=== PATIENT | female | born 1995 | race Caucasian/White ===

== ENCOUNTER 2022-03-21 07:23 | Outpatient (CLI) | payer MEDICAID ==
[2022-03-21 07:40] LABS: Hematocrit 28.7 % (30.3-42.9); Hemoglobin 9.5 gm/dl (10.1-14.3)
== END 2022-03-21 07:24 | disposition home or self-care (01) ==
LOC: LAB 07:23
PROVIDERS: ATTEND Obstetrics & Gynecology
DX: O26.893 Other specified pregnancy related conditions, third trimester (principal); Z67.41 Type O blood, Rh negative; Z3A.36 36 weeks gestation of pregnancy
CPT/HCPCS: 36415; 85014; 85018; 86850; 86900; 86901; 96372; J2790

== ENCOUNTER 2022-04-10 10:07 | Inpatient (IN) | payer MEDICAID ==
[2022-04-10] MEDS ORDERED: miSOPROStol 200 MCG TAB PR PRN (11:54)
[2022-04-10] MEDS ORDERED: BUTORPHANOL 2 MG/1 ML INJ IV PRN (11:54)
[2022-04-10] MEDS ORDERED: TERBUTALINE 1 MG/1 ML INJ SUB-Q PRN (11:54)
[2022-04-10] MEDS ORDERED: CARBOPROST TROMETHAMINE 250 MCG/1 ML INJ IM PRN (11:54)
[2022-04-10] MEDS ORDERED: ONDANSETRON 4 MG/2 ML INJ IV PRN (11:54)
[2022-04-10] MEDS ORDERED: MINERAL OIL 30 ML ORAL LIQD PO PRN (11:54)
[2022-04-10] MEDS ORDERED: OXYTOCIN 10 UNIT/1 ML INJ IM PRN (11:54)
[2022-04-10] MEDS ORDERED: ACETAMINOPHEN 325 MG TAB PO PRN (11:54)
[2022-04-10] MEDS ORDERED: NALOXONE 0.4 MG/1 ML INJ IV PRN (11:54)
[2022-04-10] MEDS ORDERED: LOPERAMIDE 2 MG CAP PO PRN (11:54)
[2022-04-10] MEDS ORDERED: ePHEDrine SULFATE 50 MG/1 ML INJ IV PRN (11:54)
[2022-04-10] MEDS ORDERED: METHYLERGONOVINE MALEATE 0.2 MG/ML VIAL IM PRN (11:54)
[2022-04-10] MEDS ORDERED: PROMETHAZINE 25 MG TAB PO PRN (11:54)
[2022-04-10] MEDS ORDERED: LACTATED RINGERS 1,000 ML IV SCH (12:00)
[2022-04-10] MEDS ORDERED: OXYTOCIN DRIP 30 UNITS/500 ML BAG IV SCH ×2 (12:00)
--- NOTE | 2022-04-10 12:16 | History and Physical Report ---
History of Present Illness Date of examination: 04/10/22 Date of admission: 04/10/22 Chief complaint: Decreased movements. History of present illness: 39 weeks gestation. . Past History Past Medical History: no pertinent history Past Surgical History: no surgical history - Obstetrical History Expected Date of Delivery: 04/17/22 Actual Gestation: 39 Week(s) 0 Day(s) : 3 Para: 2 Hx # Term Pregnancies: 2 Medications and Allergies Allergies Allergy/AdvReac Type Severity Reaction Status Date / Time No Known Allergies Allergy Verified 05/16/17 03:14 Home Medications Medication Instructions Recorded Confirmed Last Taken Type Ferrous Sulfate [Feosol 325 MG tab] 325 mg PO BID #60 tablet 05/17/17 Unknown Rx HYDROcodone/APAP 5-325 [[place] 1 each PO Q6H PRN #15 tablet 05/17/17 Unknown Rx 5-325 mg TAB] Ibuprofen [Motrin 600 MG tab] 600 mg PO Q6HR PRN #30 tablet 05/17/17 Unknown Rx Vit-Fe Fumar-FA [ 1 tab PO QDAY #30 tablet 05/17/17 Unknown Rx Vitamin] Ferrous Sulfate [Feosol 325 MG tab] 325 mg PO BID #60 tablet 09/25/18 Unknown Rx HYDROcodone/APAP 5-325 [[place] 1 each PO Q6HR PRN #20 tablet 09/25/18 Unknown Rx 5/325] Ibuprofen [Motrin] 800 mg PO Q8HR PRN #30 tablet 09/25/18 Unknown Rx Active Meds: Active Medications Acetaminophen (Acetaminophen 325 Mg Tab) 650 mg PO Q4H PRN PRN Reason: Pain, Mild (1-3) Butorphanol Tartrate (Butorphanol 2 Mg/1 Ml Inj) 1 mg IV Q2H PRN PRN Reason: Pain, Moderate(4-6) LABOR PAIN Butorphanol Tartrate (Butorphanol 2 Mg/1 Ml Inj) 2 mg IV Q2H PRN PRN Reason: Pain , Severe (7-10) Carboprost Tromethamine (Carboprost Tromethamine 250 Mcg/1 Ml Inj) 250 mcg IM ONCE PRN PRN Reason: Uterine Bleeding Ephedrine Sulfate (Ephedrine Sulfate 50 Mg/1 Ml Inj) 10 mg IV Q2M PRN PRN Reason: Hypotension Oxytocin/Sodium Chloride (Pitocin/Ns 30 Unit/500ml) 30 units in 500 mls @ 2 mls/hr IV TITR CHRISTOPHER; Protocol Lactated Ringer's (Lactated Ringers) 1,000 mls @ 125 mls/hr IV DIRECT CHRISTOPHER Oxytocin/Sodium Chloride (Pitocin/Ns 30 Unit/500ml) 30 units in 500 mls @ 40 mls/hr IV TITR CHRISTOPHER; Protocol Lidocaine (Lidocaine (2%) 20 Mg/1 Ml Vial 20 Ml Mdv) 20 ml INFILTRATI ONCE ONE Stop: 04/10/22 11:55 Loperamide HCl (Loperamide 2 Mg Cap) 2 mg PO ONCE PRN PRN Reason: give with Hemabate Methylergonovine Maleate (Methylergonovine Maleate 0.2 Mg/Ml Vial) 0.2 mg IM ONCE PRN PRN Reason: Uterine Bleeding Mineral Oil (Mineral Oil 30 Ml Oral Liqd) 30 ml PO QHS PRN PRN Reason: Constipation Misoprostol (Misoprostol 200 Mcg Tab) 800 mcg IA ONCE PRN PRN Reason: Uterine Bleeding Oxytocin (Oxytocin 10 Unit/1 Ml Inj) 10 unit IM ONCE PRN PRN Reason: Uterine Bleeding Terbutaline Sulfate (Terbutaline 1 Mg/1 Ml Inj) 0.25 mg SUB-Q ONCE PRN PRN Reason: Hyperstimulation/Hypertonicity Review of Systems All systems: negative Genitourinary: other (Decreased movements x1day) - Vital Signs Vital signs: Vital Signs Pulse BP Pulse Ox 75 120/70 98 04/10/22 11:26 04/10/22 11:26 04/10/22 11:26 Temp Pulse Resp BP Pulse Ox 98.3 F 85 20 120/70 98 04/10/22 11:30 04/10/22 12:11 04/10/22 11:30 04/10/22 11:30 04/10/22 12:11 - Physical Exam Breasts: Positive: deferred Cardiovascular: Normal S1, Normal S2 Lungs: Positive: Normal air movement Abdomen: Positive: normal appearance, soft, normal bowel sounds. Negative: tenderness Genitourinary (Female): Positive: normal external genitalia, normal perenium Vulva: both: normal Vagina: Positive: normal moisture. Negative: discharge Cervix: Negative: lesion, discharge Uterus: Positive: enlarged, normal contour Anus/Rectum: Positive: normal perianal skin, heme negative. Negative: rectal mass, hemorrhoids Extremities: Positive: normal Deep Tendon Reflex Grade: Normal +2 - Obstetrical FHR: auscultation normal Cervical Dilatation: 4 Cervical Effacement Percentage: 95 station: 0+1 Uterine Contraction Pattern: Absent Results All other labs normal. Assessment and Plan - Patient Problems (1) with 39 completed weeks gestation Current Visit: Yes Status: Acute (2) Decreased movement affecting management of mother, antepartum Current Visit: Yes Status: Acute Qualifiers: Fetus number: single or unspecified fetus Qualified Code(s): O36.8190 - Decreased movements, unspecified trimester, not applicable or unspecified Plan to address problem: For induction of labor.
[2022-04-10] MEDS ORDERED: LIDOCAINE (2%) 20 MG/1 ML VIAL 20 ML MDV INFILTRATI ONE (12:45)
[2022-04-10 13:14] LABS: Hematocrit 27.9 % (30.3-42.9); Hemoglobin 9.4 gm/dl (10.1-14.3); Mean Corpuscular HGB Conc 34 % (30-34); Mean Corpuscular Volume 76 fl (79-97); Platelet Count 263 K/mm3 (140-440); Red Blood Count 3.67 M/mm3 (3.65-5.03); Red Cell Distribution Width 14.9 % (13.2-15.2)
[2022-04-10 22:08] LABS: Bilirubin,Urine NEG (Negative); Blood,Urine MOD (Negative); Color,Urine Straw (Yellow); Protein,Urine <15 mg/dL mg/dL (Negative); RBC,Urine < 1.0 /HPF (0.0-6.0); Urobilinogen,Urine < 2.0 mg/dL (<2.0)
[2022-04-10 22:15] LABS: Amphetamine Screen,Urine PRESUMPTIVE NEGATIVE; Benzodiazepines Screen,Urine PRESUMPTIVE NEGATIVE; Cannabinoid Screen,Urine PRESUMPTIVE NEGATIVE; Cocaine Screen,Urine PRESUMPTIVE NEGATIVE; Methadone Screen,Urine PRESUMPTIVE NEGATIVE; Opiate Screen,Urine PRESUMPTIVE NEGATIVE
[2022-04-10 22:26] LABS: HCG,Quantitative 6626 mIU/mL (0-4); Hepatitis C Virus Antibody Non-Reactive (NonReactive)
[2022-04-11] MEDS: BUTORPHANOL 2 MG/1 ML INJ IV PRN ×2 (03:32→07:50)
[2022-04-11] MEDS ORDERED: PROMETHAZINE 25 MG TAB PO PRN (09:30)
--- NOTE | 2022-04-11 09:33 | Procedure Note ---
OB Delivery Note - Delivery Date of Delivery: 04/11/22 Surgeon: BEULAH OAKES Estimated blood loss: 200cc - Vaginal Delivery presentation: vertex Delivery position: OA Intrapartum events: none Delivery induction: oxytocin Delivery augmentation: pitocin Delivery monitor: external FHT, external uterine Route of delivery: Delivery placenta: spontaneous, expressed Delivery cord: nuchal cord, 3 umbilical vessels Episiotomy: none Delivery laceration: none Anesthesia: none - Infant A at 1 minute: 8 at 5 minutes: 9 (7lbs 4oz) Infant Gender: Male
[2022-04-11] MEDS ORDERED: ONDANSETRON 4 MG/2 ML INJ IV PRN (10:00)
[2022-04-11] MEDS ORDERED: diphenhydrAMINE 25 MG CAP PO PRN (10:00)
[2022-04-11] MEDS ORDERED: PRENATAL VIT27-FE FUMARATE-FOLIC ACID VIT TAB PO SCH (10:00)
[2022-04-11] MEDS ORDERED: WITCH HAZEL/ GLYCERIN PAD TP PRN (10:00)
[2022-04-11] MEDS ORDERED: LANOLIN/ZINC/DIMETHICONE (LANSINOH) 7 GM TP PRN (10:00)
[2022-04-11] MEDS ORDERED: HYDROcodone/ACETAMINOPHEN 5-325 MG TAB PO PRN (10:00)
[2022-04-11] MEDS ORDERED: PROMETHAZINE 25 MG RECT SUPP PR PRN (10:00)
[2022-04-11] MEDS ORDERED: ACETAMINOPHEN 325 MG TAB PO PRN (10:00)
[2022-04-11] MEDS ORDERED: METHYLERGONOVINE MALEATE 0.2 MG/ML VIAL IM PRN (10:00)
[2022-04-11 21:04] LABS: Hemoglobin 8.1 gm/dl (10.1-14.3)
[2022-04-11] MEDS: DOCUSATE SODIUM 100 MG CAP PO SCH (22:00)
[2022-04-11] MEDS ORDERED: MAGNESIUM HYDROXIDE (MOM) ORAL LIQD UDC PO PRN (22:00)
[2022-04-11] MEDS: IBUPROFEN 800 MG TAB PO SCH (22:01)
[2022-04-12] MEDS: IBUPROFEN 800 MG TAB PO SCH ×2 (05:47→09:14)
[2022-04-12] MEDS: DOCUSATE SODIUM 100 MG CAP PO SCH (09:14)
--- NOTE | 2022-04-12 09:30 | Progress Note ---
Assessment and Plan - Patient Problems (1) with 39 completed weeks gestation Current Visit: Yes Status: Resolved (2) Decreased movement affecting management of mother, antepartum Current Visit: Yes Status: Resolved Qualifiers: Fetus number: single or unspecified fetus Qualified Code(s): O36.8190 - Decreased movements, unspecified trimester, not applicable or unspecified (3) Status post normal vaginal delivery Current Visit: Yes Status: Acute Plan to address problem: Stable. Subjective - Subjective Date of service: 04/12/22 Principal diagnosis: Status post vaginal delivery day 1. Interval history: 39 weeks gestation. . 04/11/22. No complaints this morning. Patient reports: appetite normal, voiding normally, pain well controlled, ambulating normally [place]: doing well Objective - Vital Signs Latest vital signs: Vital Signs Temp Pulse Resp BP BP Pulse Ox Pulse Ox 04/12/22 08:15 100 04/12/22 07:39 97.6 F 85 18 108/64 99 04/12/22 00:29 97.9 F 88 18 120/62 100 04/11/22 20:00 97.7 F 98 H 18 115/69 99 100 04/11/22 15:56 98.1 F 110 H 18 119/74 100 04/11/22 10:50 98.0 F 86 14 120/76 97 97 04/11/22 10:27 70 100 04/11/22 10:23 84 115/84 04/11/22 10:22 85 99 Intake and Output 04/11/22 04/12/22 04/12/22 23:59 07:59 15:59 Intake Total 1040 900 120 Output Total 1600 Balance -560 900 120 Intake: Oral 240 240 120 Intake, Free Water 800 660 Output: Urine 1600 Void 1600 Other: Total, Intake Amount 240 240 120 Total, Output Amount 300 # Voids Void 1 2 1 - Exam Breasts: Present: deferred Lungs: Present: Normal air movement Abdomen: Present: normal appearance, soft, normal bowel sounds Uterus: Present: normal, firm Extremities: Present: normal Deep Tendon Reflex Grade: Normal +2 - Labs Labs: Abnormal lab results 04/11/22 Range/Units 20:43 Hgb 8.1 L (10.1-14.3) gm/dl Hct 25.0 L (30.3-42.9) %
--- NOTE | 2022-04-12 09:32 | Discharge Summary ---
Providers - Providers Date of Admission: 04/10/22 10:08 Date of discharge: 04/12/22 Attending physician: BEULAH OAKES MD Primary care physician: BEULAH OAKES MD Hospitalization Reason for admission: observation, induction of labor, IUP at term, other (Decreased movements.) Delivery: Episiotomy: none Laceration: none Other procedures: none complications: none Discharge diagnosis: IUP at term delivered baby: male Condition at discharge: Good Disposition: 01 HOME / SELF CARE / HOMELESS - Discharge Diagnoses (1) with 39 completed weeks gestation Status: Resolved (2) Decreased movement affecting management of mother, antepartum Status: Resolved Qualifiers: Fetus number: single or unspecified fetus Qualified Code(s): O36.8190 - Decreased movements, unspecified trimester, not applicable or unspecified (3) Status post normal vaginal delivery Status: Acute Plan - Provider Discharge Summary Activity: routine, no sex for 6 weeks, no heavy lifting 4 weeks, no strenuous exercise Diet: routine Instructions: routine Additional instructions: [] Smoking cessation referral if applicable(refer to patient education folder for contact #) [] Refer to [facility] Booklet Call your doctor immediately for: * Fever > 100.5 * Heavy vaginal bleeding ( >1 pad per hour) * Severe persistent headache * Shortness of breath * Reddened, hot, painful area to leg or breast * Drainage or odor from incision. * Keep incision clean and dry at all times and follow doctor's instructions regarding bathing/showering - Follow up plan Follow up: BEULAH OAKES MD [Primary Care Provider] - 7 Days Forms: [facility] Discharge Summary
[2022-04-12 13:30] VITALS: BP 110/65
== END 2022-04-12 13:26 | disposition home or self-care (01) | DRG 775 ==
LOC: TRG 10:07 → APU 10:07 → LD 10:08 → APU 13:49 → LD 04-11 09:39 → UNDOADMIN 04-11 09:39 → TRG 04-11 09:39 → OB 04-11 10:50
PROVIDERS: ADMIT Obstetrics & Gynecology; ATTEND Obstetrics & Gynecology
PROC: 10E0XZZ Delivery of Products of Conception, External Approach (ICD-10-PCS; principal; 2022-04-11)
DX: O69.81X0 Labor and delivery complicated by cord around neck, without compression, not applicable or unspecified (principal); O36.8130 Decreased fetal movements, third trimester, not applicable or unspecified; Z3A.39 39 weeks gestation of pregnancy; Z37.0 Single live birth; Z20.822 Contact with and (suspected) exposure to COVID-19
CPT/HCPCS: 36415; 80307; 81001; 84702; 85014; 85018; 85027; 85461; 86592; 86706; 86762; 86803; 86850; 86870; 86900; 86901; 87086; 87806; G0378; J0595; J2590; J7120; U0003

== ENCOUNTER 2022-05-02 06:00 | Day surgery (SDC) | payer MEDICAID ==
[2022-05-02] MEDS ORDERED: LACTATED RINGERS 1,000 ML ONE (06:29)
[2022-05-02] MEDS ORDERED: HYDROmorphone 0.5 MG/0.5 ML INJ IV PRN ×2 (07:44)
[2022-05-02] MEDS ORDERED: ACETAMINOPHEN 500 MG TAB PO NR (07:44)
[2022-05-02] MEDS ORDERED: MAGNESIUM OXIDE 400 MG TAB PO NR (07:44)
[2022-05-02] MEDS ORDERED: ONDANSETRON 4 MG/2 ML INJ IV PRN (07:44)
--- NOTE | 2022-05-02 07:45 | Anesthesia Day of Surgery ---
Anesthesia Day of Surgery - Day of Surgery Patient Examined: Yes Patient H&P Reviewed: Yes Patient is NPO: Yes
--- NOTE | 2022-05-02 07:46 | Anesthesia Consultation ---
Anesthesia Consult and Med Hx Date of service: 05/02/22 - Airway Anesthetic Teeth Evaluation: Good ROM Head & Neck: Adequate Mental/Hyoid Distance: Adequate Mallampati Class: Class II Intubation Access Assessment: Good - Pre-Operative Health Status ASA Pre-Surgery Classification: ASA1 Proposed Anesthetic Plan: General - Pulmonary Hx Smoking: No Hx Asthma: No COPD: No Hx Pneumonia: No Hx Sleep Apnea: No - Cardiovascular System Hx Hypertension: No - Central Nervous System Hx Seizures: No Hx Psychiatric Problems: No - Gastrointestinal Hx Gastroesophageal Reflux Disease: No - Endocrine Hx Renal Disease: No Hx End Stage Renal Disease: No Hx Hypothyroidism: No Hx Hyperthyroidism: No - Hematic Hx Anemia: No Hx Sickle Cell Disease: No - Other Systems Hx Alcohol Use: No Hx Cancer: No Hx Obesity: No - Additional Comments Anesthesia Medical History Comments: [id number] delivered. +
[2022-05-02] MEDS ORDERED: CELECOXIB 200 MG CAP PO NR (08:00)
[2022-05-02] MEDS ORDERED: MIDAZOLAM 2 MG/2 ML INJ IV NR (08:00)
[2022-05-02] MEDS ORDERED: LACTATED RINGERS 1,000 ML IV SCH ×2 (09:00→15:00)
[2022-05-02] MEDS ORDERED: ceFAZolin/Water 2 GM/20 ML 2 GM/20 ML SYRINGE IV ONE (09:12)
[2022-05-02] MEDS ORDERED: ceFAZolin/STERILE WATER 2 GM/20 ML SYRINGE IV NR (11:00)
--- NOTE | 2022-05-02 11:08 | History and Physical Report ---
History of Present Illness Date of examination: 05/02/22 Date of admission: 05/02/22 Chief complaint: Voluntary request for tubal sterilization History of present illness: . Last confinement 04/11/22. Done with childbearing. Past History Past Medical History: no pertinent history - Obstetrical History : 3 Para: 3 Medications and Allergies Allergies Allergy/AdvReac Type Severity Reaction Status Date / Time No Known Allergies Allergy Verified 04/26/22 11:49 Home Medications Medication Instructions Recorded Confirmed Last Taken Type Vit-Fe Fumar-FA [ 1 tab PO QDAY #30 tablet 05/17/17 04/26/22 Unknown Rx Vitamin] Active Meds: Active Medications Cefazolin Sodium (Cefazolin/Sterile Water 2 Gm/20 Ml Syringe) 2 gm IV PREOP NR Celecoxib (Celecoxib 200 Mg Cap) 400 mg PO PREOP NR Stop: 05/02/22 12:00 Hydromorphone HCl (Hydromorphone 0.5 Mg/0.5 Ml Inj) 0.25 mg IV Q10MIN PRN PRN Reason: Pain, Moderate (4-6) Stop: 05/02/22 20:00 Hydromorphone HCl (Hydromorphone 0.5 Mg/0.5 Ml Inj) 0.5 mg IV Q10MIN PRN PRN Reason: Pain , Severe (7-10) Stop: 05/02/22 20:00 Lactated Ringer's (Lactated Ringers) 1,000 mls @ 125 mls/hr IV DIRECT CHRISTOPHER Methocarbamol (Methocarbamol 750 Mg Tab) 1,500 mg PO ONCE NR Stop: 05/02/22 12:00 Midazolam HCl (Midazolam 2 Mg/2 Ml Inj) 2 mg IV PREOP NR Stop: 05/02/22 23:59 Ondansetron HCl (Ondansetron 4 Mg/2 Ml Inj) 4 mg IV ONCE PRN PRN Reason: Nausea And Vomiting Stop: 05/02/22 12:00 Review of Systems All systems: negative - Physical Exam Breasts: Positive: deferred Cardiovascular: Normal S1, Normal S2, No murmurs Lungs: Positive: Clear to auscultation, Normal air movement Abdomen: Positive: normal appearance, soft, normal bowel sounds Deep Tendon Reflex Grade: Normal +2 Results All other labs normal. Assessment and Plan - Patient Problems (1) Request for sterilization Current Visit: Yes Status: Acute Plan to address problem: For bilateral salpingectomy. Consent given.
[2022-05-02] MEDS ORDERED: MIDAZOLAM 2 MG/2 ML INJ IV ONE (14:08)
[2022-05-02] MEDS ORDERED: ROCURONIUM 50 MG/5 ML INJ IV ONE (14:43)
[2022-05-02] MEDS ORDERED: propofoL 200 MG/20 ML VIAL IV ONE (14:43)
[2022-05-02] MEDS ORDERED: LIDOCAINE MPF (2%) 20 MG/1 ML VIAL 5 ML ONE (14:43)
[2022-05-02] MEDS ORDERED: fentaNYL 100 MCG/2 ML INJ ONE (14:43)
[2022-05-02] MEDS ORDERED: GLYCOPYRROLATE 0.4 MG/2 ML INJ ONE (14:58)
[2022-05-02] MEDS ORDERED: dexAMETHasone 20 MG/5 ML VIAL ONE (14:58)
[2022-05-02] MEDS ORDERED: ONDANSETRON 4 MG/2 ML INJ ONE (14:58)
[2022-05-02] MEDS ORDERED: NEOSTIGMINE 10MG/10 ML INJ MDV ONE (14:58)
[2022-05-02] MEDS ORDERED: KETOROLAC 30 MG/1 ML INJ ONE (14:58)
--- NOTE | 2022-05-02 15:45 | Operative Report ---
Operative Report Operative Report: Date of surgery: May 02, 2022 Admission diagnosis: Voluntary request for tubal sterilization Postoperative diagnosis: The same Procedure: Laparoscopic bilateral salpingectomy Surgeon: Ghada Velazquez MD Anesthesia: General anesthesia Anesthesiologist: Silvio JONAS Estimated blood loss: Less than 5 cc Complications: None Findings: The uterus, fallopian tubes and ovaries were all grossly normal. The bowels, omentum, inferior dome of the diaphragm, the liver were all grossly normal. There were no peritoneal adhesions seen. Procedure in details: Patient was taken to the operating room and in the straight supine position she was given general anesthesia. Patient was then put in the lithotomy position and prepped in the vulvar vagina and abdomen. The drapes were placed. A timeout was done. With the go ahead from the compensation business partner, an indwelling Qureshi catheter was inserted. A pair of sponge forceps was attached to the anterior lip of the cervix and was used to uncover the acorn cannula. At the navel a small stab incision was made in the sub-umbilical aspect. The Veress needle was carefully inserted into the peritoneal cavity, making sure to point the tip of this instruments towards the free hollow of the pelvis. The Veress needle was thereafter aspirated and no blood was drawn. Veress needle was then flushed through with a small quantity of sterile normal saline without any resistance. About 3 and half liters of carbon dioxide was used to insufflate the peritoneal cavity. After removing the Veress needle, a 5 mm trocar with its port was inserted into the peritoneal cavity and again making sure to point the tip of this instrument into the free hollow of the pelvis. The laparoscope was subsequently confirmed successful access to the peritoneal cavity. 2 additional 5 mm ports were placed in the flanks. The endoscopic LigaSure was used to thermally coagulated the mesosalpinges before transecting each fallopian tube and the uterine cornua. There was no bleeding intraperitoneally. Hemostasis was very good. Careful inspection of the peritoneal cavity was once again done. The pneumoperitoneum was then expelled and all instruments were removed from the abdomen. Oozing from the stab incisions was controlled with the Bovie before each incision was closed with Jamil mabond. The patient tolerated the procedure well. There were no complications. Blood loss was estimated at less than 5 cc. All sponges and instruments were accounted for. The patient was transferred in satisfactory condition to the recovery room.
--- NOTE | 2022-05-02 16:07 | Post Anesthesia Evaluation ---
- Post Anesthesia Evaluation Patient Participated: Yes Airway Patent: Yes Stable Respiratory Function: Yes Nausea/Vomiting: No Temp > 96.8F: Yes Pain Manageable: Yes Adequeate Hydration: Yes Anesthesia Complications: No Block Receding Appropriately: Not Applicable Patient on Ventilator: No
[2022-05-02 17:30] VITALS: BP 124/70
== END 2022-05-02 17:57 | disposition home or self-care (01) ==
LOC: OR 06:00
PROVIDERS: ATTEND Obstetrics & Gynecology
DX: Z30.2 Encounter for sterilization (principal); Z79.899 Other long term (current) drug therapy; Z83.3 Family history of diabetes mellitus; Z80.8 Family history of malignant neoplasm of other organs or systems
CPT/HCPCS: 58670; 81025; 88302; J0690; J1100; J1815; J1885; J2250; J2405; J2704; J2710; J3010; J3490; J7120